=== PATIENT | female | born 1955 | race Caucasian/White ===

== ENCOUNTER 2023-08-08 14:56 | Emergency (ER) | payer MEDICARE, OTHER ==
[2023-08-08] MEDS ORDERED: Sodium Chloride 0.9% 1,000 ML IV ONE (15:08)
[2023-08-08 15:34] LABS: BASOPHILS PERCENT AUTO 0.1 % (0.0-1.5); EOSINOPHILS ABSOLUTE AUTO 0.1 K/uL (0.0-0.7); EOSINOPHILS PERCENT AUTO 1.5 % (0.0-7.0); HEMATOCRIT 37.2 % (36.0-46.0); HEMOGLOBIN 12.4 g/dL (12.0-16.0); LYMPHOCYTES ABSOLUTE AUTO 1.9 K/uL (0.6-2.4); LYMPHOCYTES PERCENT AUTO 21.1 % (16.0-40.0); MEAN CORPUSCULAR HEMOGLOBIN 25.7 pg (27.0-32.0); MEAN CORPUSCULAR HGB CONC 33.3 g/dL (31.0-37.0); MEAN CORPUSCULAR VOLUME 77.2 fL (80.0-98.0); MONOCYTES ABSOLUTE AUTO 0.6 K/uL (0.0-0.8); NEUTROPHILS ABSOLUTE AUTO 6.2 K/uL (1.4-5.7); NEUTROPHILS PERCENT AUTO 70.3 % (48.0-80.0); NRBC ABSOLUTE 0 K/uL; PLATELET COUNT,PLT 231 K/uL (150-400); RED BLOOD CELL COUNT 4.82 M/uL (4.30-5.90)
[2023-08-08 15:41] LABS: APPEARANCE,URINE SLT CLOUDY; BILIRUBIN,URINE NEGATIVE (NEGATIVE); COLOR,URINE YELLOW; GLUCOSE,URINE NEGATIVE (NEGATIVE); KETONES,URINE NEGATIVE (NEGATIVE); LEUKOCYTE ESTERASE,URINE SMALL (NEGATIVE); NITRITE,URINE NEGATIVE (NEGATIVE); OCCULT BLOOD,URINE TRACE-INTACT (NEGATIVE); PROTEIN,URINE >=300 mg/dL (NEGATIVE); UROBILINOGEN,URINE 0.2 EU/dL (<2.0)
[2023-08-08 16:00] LABS: BACTERIA,URINE MODERATE (NEGATIVE); EPITHELIAL CELLS,URINE FEW (NONE-FEW)
[2023-08-08 16:05] LABS: A/G RATIO 0.6 (0.9-1.6); ALANINE AMINOTRANSFERASE,ALT 27 IU/L (14-63); ALBUMIN 2.7 g/dL (3.4-5.0); ALKALINE PHOSPHATASE 136 U/L (46-116); ASPARTATE AMNIOTRANSFERASE,AST 20 IU/L (15-37); BILIRUBIN TOTAL 0.3 mg/dL (0.2-1.0); BLOOD UREA NITROGEN,BUN 43 mg/dL (7.0-18.0); CALCIUM 8.5 mg/dL (8.5-10.1); CARBON DIOXIDE,CO2 25.9 mmol/L (21.0-32.0); CHLORIDE,CL 105 mmol/L (98-107); CREATININE 1.6 mg/dL (0.6-1.0); EST CRCL DRUG DOSING (CG) 25.04 mL/min; GLUCOSE RANDOM 171 mg/dL (74-106); LIPASE 44 U/L (16-77); POTASSIUM,K 4.7 mmol/L (3.5-5.1); PROTEIN TOTAL,TP 7.1 g/dL (6.4-8.2); SODIUM,NA 136 mmol/L (136-145)
[2023-08-08 16:06] LABS: ESTIMATED GFR 35 mL/min (>60); TSH ULTRASENSITIVE < 0.01 uIU/mL (0.36-3.74)
[2023-08-08 16:17] LABS: INR 0.99 (0.86-1.11)
[2023-08-08] MEDS ORDERED: Magnesium Sulfate/Water 2 GM in Premix Bag 1 BAG IV ONE (17:48)
[2023-08-08] MEDS ORDERED: Sodium Chloride 0.9% 500 ML IV ONE (19:11)
== END 2023-08-08 22:29 | disposition home or self-care (01) ==
LOC: MW.ED 14:56
DX: I49.9 Cardiac arrhythmia, unspecified (principal); R00.2 Palpitations
CPT/HCPCS: 36415; 70450; 71045; 80053; 81001; 83690; 83735; 83880; 84439; 84443; 84484; 85025; 85610; 87086; 87147; 93005; 96365; 96366; 99285; J3475; J7040; 93010; 99283

== ENCOUNTER 2023-12-20 17:10 | Emergency (ER) | payer MEDICARE, OTHER ==
[2023-12-20] MEDS: Sodium Chloride 0.9% 500 ML IV ONE (18:05)
[2023-12-20] MEDS ORDERED: Metoprolol Tartrate 5 MG in Sodium Chloride 0.9% 50 ML IV ONE (18:28)
[2023-12-20] MEDS: Metoprolol Tartrate 5 MG/5 ML SDV IV ONE (18:42)
[2023-12-20 19:04] LABS: BASOPHILS ABSOLUTE AUTO 0.03 K/uL (0.00-0.20); BASOPHILS PERCENT AUTO 0.2 % (0.0-1.0); HEMATOCRIT 40.4 % (37.0-47.0); HEMOGLOBIN 13.9 g/dL (12.0-16.0); IMMATURE GRAN ABSOLUTE AUTO 0.19 K/uL (0.00-0.05); IMMATURE GRAN PERCENT AUTO 1.1 % (0.0-0.4); LYMPHOCYTES PERCENT AUTO 5.8 % (24.0-44.0); MEAN CORPUSCULAR HEMOGLOBIN 26.6 pg (28.0-32.0); MEAN CORPUSCULAR HGB CONC 34.4 g/dL (32.0-36.0); MEAN CORPUSCULAR VOLUME 77.2 fL (83.0-99.0); MEAN PLATELET VOLUME 12.3 fL (9.4-12.3); MONOCYTES ABSOLUTE AUTO 1.26 K/uL (0.00-0.80); MONOCYTES PERCENT AUTO 7.3 % (0.0-8.0); NEUTROPHILS ABSOLUTE AUTO 14.84 K/uL (1.80-7.70); NEUTROPHILS PERCENT AUTO 85.6 % (41.0-71.0); NRBC ABSOLUTE 0.06 K/uL (0.00-0.02); NRBC PERCENT 0.3 /100WBC (0.0-0.2); PLATELET COUNT,PLT 165 K/uL (150-400); RED BLOOD CELL COUNT 5.23 M/uL (4.10-5.30); WHITE BLOOD CELL COUNT,WBC 17.32 K/uL (3.9-11.3)
[2023-12-20 19:15] LABS: ALBUMIN 2.6 g/dL (3.4-5.0)
[2023-12-20 20:10] LABS: BILIRUBIN TOTAL 1.3 mg/dL (0.2-1.0); CALCIUM 8.1 mg/dL (8.5-10.1); CARBON DIOXIDE,CO2 15.4 mmol/L (21.0-32.0); CREATININE 2.4 mg/dL (0.6-1.0); EST CRCL DRUG DOSING (CG) 16.46 mL/min; POTASSIUM,K 6.2 mmol/L (3.5-5.1); PROTEIN TOTAL,TP 6.6 g/dL (6.4-8.2)
[2023-12-20 20:15] LABS: A/G RATIO 0.7 (0.9-1.6)
[2023-12-20] MEDS: Metoprolol Tartrate 5 MG in Sodium Chloride 0.9% 50 ML IV ONE (20:41)
[2023-12-20] MEDS: Metoprolol Tartrate 5 MG/5 ML SDV IVPUSH ONE ×2 (20:44→21:11)
[2023-12-20] MEDS: Metoprolol Tartrate 5 MG/5 ML SDV ONE (20:45)
[2023-12-20] MEDS: Insulin Regular, Human 100 Units/ML 10 ML Vial IVPUSH ONE (21:44)
[2023-12-20] MEDS ORDERED: Sodium Chloride 0.9% 500 ML IV SCH (21:50)
[2023-12-20] MEDS: EPINEPHrine 1 MG/1 ML Amp IVPUSH ONE ×4 (21:53→22:30)
[2023-12-20] MEDS: Rocuronium 100 MG/10 ML MDV IVPUSH ONE (21:54)
[2023-12-20] MEDS: Etomidate 2 MG/ML 10 ML SDV IVPUSH ONE (21:54)
[2023-12-20] MEDS: Sodium Bicarbonate 8.4% 50 MEQ/50 ML Syringe IVPUSH ONE ×3 (21:59→23:30)
[2023-12-20 22:02] LABS: BASE EXCESS VENOUS -18.7 (-2.0-3.0); PH,VENOUS 7.04 (7.31-7.41)
[2023-12-20] MEDS: Phenylephrine 10 MG in Sodium Chloride 0.9% 99 ML IV SCH (22:15)
[2023-12-20] MEDS ORDERED: Norepinephrine Bit/D5W Premix 250 ML IV SCH (22:15)
[2023-12-20 22:31] LABS: PHOSPHORUS 8.2 mg/dL (2.6-4.7)
[2023-12-20 22:36] LABS: BASE EXCESS ARTERIAL -21.1 (-2.0-3.0); BICARBONATE,ARTERIAL 12 mEq/L (22-26); PCO2 ARTERIAL 57 mmHG (35-45)
[2023-12-20 22:40] LABS: PO2 ARTERIAL < 30 mmHG (80-105)
[2023-12-20] MEDS: Calcium Chloride 10% 1 GM/10 ML Syringe IVPUSH ONE (22:46)
[2023-12-20] MEDS: Furosemide 40 MG/4 ML VIAL IVPUSH ONE (23:46)
[2023-12-21] MEDS: Sodium Chloride 0.9% 1,000 ML IV SCH (00:22)
[2023-12-21 00:28] LABS: BICARBONATE,ARTERIAL 7 mEq/L (22-26); PCO2 ARTERIAL 26 mmHG (35-45); PO2 ARTERIAL 334 mmHG (80-105)
[2023-12-21] MEDS: Insulin Regular in 0.9 % NACL 100 ML IV SCH (00:53)
[2023-12-21] MEDS: Tenecteplase 50 MG Kit ONE (00:59)
[2023-12-21] MEDS ORDERED: DOBUTamine/Dextrose 5%-Water 250 MG/250 ML BAG IV SCH ×3 (01:15→01:42)
[2023-12-21] MEDS ORDERED: Sodium Bicarbonate 150 MEQ in Dextrose 5% in Water 1,000 ML IV ONE (01:30)
[2023-12-21] MEDS: Sodium Bicarbonate 150 MEQ in Dextrose 5% in Water 1,000 ML IV ONE ×3 (01:39→08:48)
[2023-12-21 01:49] LABS: A/G RATIO 0.6 (0.9-1.6); ALBUMIN 2.1 g/dL (3.4-5.0); BILIRUBIN TOTAL 1.8 mg/dL (0.2-1.0); CALCIUM 9.1 mg/dL (8.5-10.1); CARBON DIOXIDE,CO2 12.2 mmol/L (21.0-32.0); CREATININE 2.6 mg/dL (0.6-1.0); EST CRCL DRUG DOSING (CG) 15.19 mL/min; PROTEIN TOTAL,TP 5.7 g/dL (6.4-8.2)
[2023-12-21] MEDS ORDERED: Albuterol 0.083% 2.5 MG/3 ML Neb Soln NEB ONE (02:03)
[2023-12-21] MEDS: Furosemide 40 MG/4 ML VIAL ONE (03:45)
[2023-12-21 05:30] LABS: BICARBONATE,ARTERIAL 14 mEq/L (22-26); PCO2 ARTERIAL 37 mmHG (35-45); PO2 ARTERIAL 213 mmHG (80-105)
[2023-12-21 05:31] LABS: CALCIUM 7.6 mg/dL (8.5-10.1); CARBON DIOXIDE,CO2 13.6 mmol/L (21.0-32.0); CREATININE 2.7 mg/dL (0.6-1.0); POTASSIUM,K 5.7 mmol/L (3.5-5.1)
[2023-12-21 05:38] LABS: EST CRCL DRUG DOSING (CG) 14.65 mL/min
[2023-12-21] MEDS: Iopamidol 755 MG/ML 500 ML Multipack Bottle IVPUSH STA (07:10)
[2023-12-21] MEDS: Phenylephrine 10 MG in Sodium Chloride 0.9% 99 ML IV SCH (07:15)
[2023-12-21] MEDS: Vasopressin 100 UNITS in Dextrose 5% in Water 245 ML IV SCH (07:15)
[2023-12-21 07:39] LABS: CORONAVIRUS COVID-19 NAA NEGATIVE (NEGATIVE); INFLUENZA A NAA NEGATIVE (NEGATIVE); INFLUENZA B NAA NEGATIVE (NEGATIVE); RESPIRATORY SYNCYTIAL VIR NAA NEGATIVE (NEGATIVE)
[2023-12-21] MEDS: propofoL 100 ML IV SCH (08:06)
[2023-12-21] MEDS ORDERED: 50% Dextrose in Water 50 ML Syringe IVPUSH PRN ×2 (08:17→10:11)
[2023-12-21] MEDS: Insulin Regular, Human 100 Units/ML 10 ML Vial IVPUSH STA (08:28)
[2023-12-21] MEDS: Phenylephrine 1% 10 MG/ML SDV ONE (08:38)
[2023-12-21] MEDS: Insulin Regular, Human 100 Units/ML 10 ML Vial ONE (08:46)
[2023-12-21] MEDS: Norepinephrine Bit/D5W Premix 250 ML ONE (08:47)
[2023-12-21] MEDS: Norepinephrine Bit/D5W Premix 250 ML IV SCH (09:03)
[2023-12-21] MEDS: Albuterol 0.083% 2.5 MG/3 ML Neb Soln ONE (09:06)
[2023-12-21] MEDS: EPINEPHrine 1 MG/1 ML Amp IVPUSH ONE (09:09)
[2023-12-21] MEDS: Sodium Chloride 0.9% 1,000 ML IV ONE (09:10)
[2023-12-21 09:42] LABS: ALBUMIN 1.2 g/dL (3.4-5.0); BILIRUBIN TOTAL 2.4 mg/dL (0.2-1.0); CALCIUM 6.5 mg/dL (8.5-10.1); CARBON DIOXIDE,CO2 22.3 mmol/L (21.0-32.0); CREATININE 2.6 mg/dL (0.6-1.0); EST CRCL DRUG DOSING (CG) 15.21 mL/min; POTASSIUM,K 4.1 mmol/L (3.5-5.1); PROTEIN TOTAL,TP 3.4 g/dL (6.4-8.2)
[2023-12-21 10:03] LABS: A/G RATIO 0.6 (0.9-1.6)
[2023-12-21] MEDS ORDERED: Glucagon,Human Recombinant 1 MG Vial IM PRN (10:11)
[2023-12-21] MEDS: Insulin Regular, Human 100 Units/ML 10 ML Vial IVPUSH ONE (10:16)
[2023-12-21 11:41] LABS: BASE EXCESS ARTERIAL -7.3 (-2.0-3.0); BICARBONATE,ARTERIAL 20 mEq/L (22-26); PCO2 ARTERIAL 47 mmHG (35-45); PO2 ARTERIAL 77 mmHG (80-105)
[2023-12-21] MEDS: EPINEPHrine 1 MG in Dextrose 5% in Water 99 ML IV SCH (13:10)
[2023-12-21 15:18] LABS: BICARBONATE,ARTERIAL 18 mEq/L (22-26); PCO2 ARTERIAL 35 mmHG (35-45); PO2 ARTERIAL 94 mmHG (80-105)
[2023-12-21] MEDS ORDERED: Hydrocortisone Sodium Succinate 250 MG/2 ML SDV IV ONE (15:37)
[2023-12-21] MEDS: Hydrocortisone Sodium Succinate 100 MG/2 ML SDV IV ONE (15:44)
== END 2023-12-21 16:40 ==
LOC: MW.ED 17:10
DX: I24.89 Other forms of acute ischemic heart disease (principal); I48.91 Unspecified atrial fibrillation; I50.9 Heart failure, unspecified; I11.0 Hypertensive heart disease with heart failure; E11.10 Type 2 diabetes mellitus with ketoacidosis without coma; Z79.84 Long term (current) use of oral hypoglycemic drugs; Z79.899 Other long term (current) drug therapy
CPT/HCPCS: 0241U; 31500; 36415; 36600; 51702; 70450; 71045; 71275; 74177; 80048; 80053; 82009; 82803; 82947; 83605; 83735; 83880; 84100; 84484; 85025; 85379; 92950; 93005; 96365; 96366; 96368; 96375; 96376; 99291; 99292; G0390; J0171; J0282; J1250; J1720; J1815; J1940; J2371; J2704; J3490; J7030; J7040; J7060; Q9967; 36620; 93010